=== PATIENT | male | born 1995 | race Caucasian/White ===

== ENCOUNTER 2017-10-08 10:41 | Emergency (ER) | payer OTHER ==
[~2017-10-08] VITALS: Ht 190.5 cm; Wt 113.4 kg
--- NOTE | ~2017-10-08 | EKG ---
[place] [address] [facility] [place] [address] ELECTROCARDIOGRAM REPORT Name: GEORGE CASAS Room #: DEP GIRISH Hale#: [id number] Admission: 10/08/17 Attend Phys: Discharge: 10/08/17 Date of : [birth year] Report #: [id number] THIS REPORT FOR: //name// [facility] ED Test Date: 2017-10-08 Test Time: 10:59:09 Pat Name: GEORGE CASAS Department: Room: Gender: [employer] Member: MANNIEYAKOV : 1995 Requested By: Leroy Huffman Order Number: [id number] MD: Joe Cobos Measurements Intervals [place] Rate: 51 P: -55 CT: 116 QRS: -66 QRSD: 97 T: 26 QT: 428 QTc: 395 Interpretive Statements Sinus bradycardia Left anterior hemiblock No previous ECG available for comparison Electronically Signed On 10-09-2017 14:13:41 PHOTOGRAPHER AERIAL by Joe Cobos [email or web address] <ELECTRONICALLY SIGNED> By: Joe Cobos MD, [facility] 10/09/17 1413 1059 1059 Joe Cobos MD, FACC /EPI
[~2017-10-08 10:41] MED LIST: AUGMENTIN 875875 MG; CLEOCIN HCL150 MG PO; IBUPROFEN 800800 M1 PO; NORCO 5-325 TA1 EACH PO
[2017-10-08] MEDS ORDERED: LISINOPRIL5 MG PO (11:48)
[2017-10-08] MEDS ORDERED: NEXIUM40 MG PO (11:49)
[2017-10-08] MEDS ORDERED: VENTOLIN HFA 1818 GM INH (12:19)
[2017-10-08] MEDS ORDERED: ZPAK PO (12:19)
[2017-10-08 12:43] VITALS: BP 107/51
== END 2017-10-08 12:44 | disposition home or self-care (01) ==
LOC: ER 10:41
DX: R05 Cough (principal); R07.89 Other chest pain; Z90.89 Acquired absence of other organs

== ENCOUNTER 2018-12-12 11:50 | Emergency (ER) | payer OTHER ==
[~2018-12-12] VITALS: Ht 190.5 cm; Wt 131.5 kg
[~2018-12-12 11:50] MED LIST changes: +LISINOPRIL5 MG PO; +NEXIUM40 MG PO; +VENTOLIN HFA 1818 GM INH; +ZPAK PO
[2018-12-12 12:15] LABS: ABSOLUTE NEUTROPHILS 5.8 thou/uL (1.4-8.2); BASOPHILS 1.6 % (0.0-2.0); EOSINOPHILS 7.6 % (0.0-3.0); HEMATOCRIT 48.3 % (42.0-52.0); HEMOGLOBIN 16.6 gm/dL (14.0-18.0); MCH 30.9 pg (26.0-34.0); MCHC 34.4 g/dL (28.0-37.0); MCV 90.1 fL (80.0-100.0); MONOCYTES 6.3 % (1.0-8.0); PLATELET COUNT 212 thou/uL (150-400); POLYS 62.5 % (36.0-66.0); RBC 5.36 mil/uL (4.50-6.00); RDW 13.3 % (10.5-14.5); WBC 9.3 thou/uL (4.0-11.0)
[2018-12-12 12:23] LABS: CALCIUM 9.1 mg/dL (8.5-10.1); CREATININE 1.2 mg/dL (0.7-1.3); POTASSIUM 4.1 mmol/L (3.5-5.1)
[2018-12-12 12:29] LABS: ALBUMIN 4.2 g/dL (3.4-5.0); TOTAL BILIRUBIN 0.7 mg/dL (<0.1-1.0); TOTAL PROTEIN 7.9 g/dL (6.4-8.2)
[2018-12-12 13:32] LABS: URINE BLOOD 3+ (Negative); URINE GLUCOSE-RANDOM* NEGATIVE (Negative); URINE KETONES NEGATIVE (Negative); URINE LEUKOCYTES-REFLEX NEGATIVE (Negative); URINE NITRITE-REFLEX NEGATIVE (Negative); URINE PROTEIN (DIPSTICK) 1+ (Negative); URINE SPECIFIC GRAVITY >= 1.030 (1.005-1.035); URINE UROBILINOGEN 0.2 E.U./dl (0.2-1.0)
[2018-12-12 13:34] LABS: URINE BILIRUBIN NEGATIVE (Negative); URINE CLARITY CLOUDY; URINE COLOR BROWNISH
[2018-12-12 13:35] LABS: ICTOTEST (BILI CONFIRMATORY) Negative (Negative)
[2018-12-12] MEDS ORDERED: IBUPROFEN 800800 M1 PO (13:40)
[2018-12-12] MEDS ORDERED: ZOFRAN ODT4 MG PO (13:40)
[2018-12-12] MEDS ORDERED: SENNA-DOCUSATE1 EAC1 PO (13:40)
[2018-12-12] MEDS ORDERED: NORCO 5-325 TA1 EACH PO (13:40)
[2018-12-12 13:44] LABS: SQUAMOUS None Seen /LPF (0-3); URINE RBC >20 Many /HPF (0-2); URINE WBC-REFLEX 0-5 Rare /HPF (0-5)
[2018-12-12 13:45] LABS: BACTERIA-REFLEX 1-9 Few /HPF (None Seen); CASTS None Seen /LPF (None Seen); CRYSTALS None Seen /LPF (None Seen); YEAST-REFLEX Present (None Seen)
[2018-12-12 13:49] VITALS: BP 122/67
== END 2018-12-12 13:55 | disposition home or self-care (01) ==
LOC: ER 11:50
PROVIDERS: Emergency Medicine
DX: N20.1 Calculus of ureter (principal); I10 Essential (primary) hypertension; F17.210 Nicotine dependence, cigarettes, uncomplicated; Z87.442 Personal history of urinary calculi; Z98.890 Other specified postprocedural states

== ENCOUNTER 2018-12-23 11:11 | Emergency (ER) | payer OTHER ==
[~2018-12-23] VITALS: Ht 190.5 cm; Wt 131.5 kg
[~2018-12-23 11:11] MED LIST changes: +SENNA-DOCUSATE1 EAC1 PO; +ZOFRAN ODT4 MG PO
[2018-12-23 11:14] VITALS: BP 141/93
[2018-12-23] MEDS ORDERED: NEXIUM40 MG PO (11:23)
[2018-12-23] MEDS ORDERED: NORCO 5-325 TA1 EACH PO (11:37)
== END 2018-12-23 11:47 | disposition home or self-care (01) ==
LOC: ER 11:11
DX: S80.01XA Contusion of right knee, initial encounter (principal); I10 Essential (primary) hypertension; F17.210 Nicotine dependence, cigarettes, uncomplicated; W00.0XXA Fall on same level due to ice and snow, initial encounter; Y93.89 Activity, other specified; Y92.89 Other specified places as the place of occurrence of the external cause; Y99.8 Other external cause status

== ENCOUNTER 2019-04-09 00:43 | Emergency (ER) | payer OTHER ==
[~2019-04-09] VITALS: Ht 190.5 cm; Wt 111.4 kg
[2019-04-09] MEDS ORDERED: PREDNISONE 20 M20 MG PO (01:44)
[2019-04-09] MEDS ORDERED: BENADRYL25 MG PO (01:44)
[2019-04-09 02:09] VITALS: BP 138/99
== END 2019-04-09 02:10 | disposition home or self-care (01) ==
LOC: ER 00:43
DX: L50.9 Urticaria, unspecified (principal); I10 Essential (primary) hypertension; F17.210 Nicotine dependence, cigarettes, uncomplicated; Z98.890 Other specified postprocedural states; Z87.442 Personal history of urinary calculi

== ENCOUNTER 2019-05-09 04:08 | Emergency (ER) | payer OTHER ==
[~2019-05-09] VITALS: Ht 190.5 cm; Wt 106.6 kg
[~2019-05-09 04:08] MED LIST changes: +BENADRYL25 MG PO; +PREDNISONE 20 M20 MG PO
[2019-05-09] MEDS ORDERED: ALEVE220 MG PO (04:22)
[2019-05-09] MEDS ORDERED: OXYCODONE HCL 55 MG PO (04:22)
[2019-05-09] MEDS ORDERED: COLACE100 MG PO (04:22)
[2019-05-09 05:29] LABS: CALCIUM 9.3 mg/dL (8.5-10.1); CREATININE 1.2 mg/dL (0.7-1.3); POTASSIUM 4.3 mmol/L (3.5-5.1)
[2019-05-09 06:22] VITALS: BP 136/86
== END 2019-05-09 06:25 | disposition home or self-care (01) ==
LOC: ER 04:08
PROVIDERS: Emergency Medicine
DX: R60.0 Localized edema (principal); I10 Essential (primary) hypertension; F17.210 Nicotine dependence, cigarettes, uncomplicated; Z91.010 Allergy to peanuts; Z91.018 Allergy to other foods; Z87.442 Personal history of urinary calculi; Z98.890 Other specified postprocedural states

== ENCOUNTER 2020-01-09 20:14 | Emergency (ER) | payer OTHER ==
[~2020-01-09] VITALS: Ht 190.5 cm; Wt 90.7 kg
[~2020-01-09 20:14] MED LIST changes: +ALEVE220 MG PO; +COLACE100 MG PO; +OXYCODONE HCL 55 MG PO
[2020-01-09] MEDS ORDERED: ULTRAM 50MG TAB50 MG PO (22:29)
[2020-01-09] MEDS ORDERED: VALTREX1000 MG PO (22:29)
[2020-01-09 23:14] VITALS: BP 146/94
== END 2020-01-09 23:00 | disposition home or self-care (01) ==
LOC: ER 20:14
DX: B00.2 Herpesviral gingivostomatitis and pharyngotonsillitis (principal); I10 Essential (primary) hypertension; Z91.010 Allergy to peanuts; Z91.018 Allergy to other foods; Z90.89 Acquired absence of other organs; Z87.442 Personal history of urinary calculi